=== PATIENT | male | born 1955 | race African-American/Black ===

== ENCOUNTER 2017-03-20 19:55 | Emergency (ER) | payer MEDICAID, OTHER ==
[~2017-03-20] VITALS: Ht 172.7 cm; Wt 84.0 kg
[~2017-03-20 19:55] MED LIST: ASPI-1159 PO; BACL-141 PO; ESCI20TA36 PO; HYDR12.529 PO; METO-293 PO; OMEP20TA80 PO; PSEU120T84 PO; TRAM50TA73; VIC
[2017-03-20] MEDS ORDERED: KETOROLAC 30MG/ML VIAL IV STA (21:59)
[2017-03-20] MEDS ORDERED: ONDANSETRON HCL 4MG/2ML VIAL IV STA (21:59)
[2017-03-20] MEDS ORDERED: FAMOTIDINE 20MG/2ML VIAL IV STA (21:59)
[2017-03-20] MEDS ORDERED: SODIUM CHLORIDE 0.9% 1,000 ML IV ONE (21:59)
[2017-03-20] MEDS ORDERED: MORPHINE SULFATE 4 MG/ML CPJ (NOT FOR IM USE) IV STA (21:59)
[2017-03-20 23:16] LABS: HEMATOCRIT. 43.4 % (42.0-52.0); HEMOGLOBIN. 14.4 g/dL (14.0-18.0); MEAN CORPUSCULAR VOLUME 81.6 fL (80.0-94.0); MEAN PLATELET VOLUME 8.7 fl (7.4-10.4); PLATELET 285 x1000/uL (130-400); PROTHROMBIN TIME 10.8 sec (9.4-11.6); RED BLOOD CELL COUNT 5.32 mill/uL (4.7-6.1); RED CELL DISTRIBUTION WIDTH 15.5 % (11.6-14.6)
[2017-03-20 23:19] LABS: CHLORIDE 103 mEq/L (98-107)
[2017-03-20 23:23] LABS: CARBON DIOXIDE 25 mEq/L (21-32); ETHANOL BLOOD < 10 mg/dL
[2017-03-20 23:28] LABS: TROPONIN I < 0.02 ng/mL (0.00-0.04)
[2017-03-20 23:32] LABS: CLARITY URINE CLEAR (CLEAR); COLOR URINE YELLOW (YELLOW); GLUCOSE URINE 2+ (NEGATIVE); KETONES URINE 2+ (NEGATIVE); LEUKOCYTE ESTERASE URINE NEGATIVE (NEGATIVE); NITRITE URINE NEGATIVE (NEGATIVE); OCCULT BLOOD URINE 1+ (NEGATIVE); PH URINE 8.5 (4.5-8.0); PROTEIN URINE 4+ (NEGATIVE); SPECIFIC GRAVITY URINE 1.023 (1.005-1.030); UROBILINOGEN URINE 0.2 E.U./dL (0.2-1.0)
[2017-03-20 23:54] LABS: *AMPHETAMINES SCREEN URINE NEGATIVE (NEGATIVE); *BARBITURATES SCREEN URINE NEGATIVE (NEGATIVE); *BENZODIAZEPINES SCREEN URINE NEGATIVE (NEGATIVE); *COCAINE SCREEN URINE NEGATIVE (NEGATIVE); CANNABINOID URINE SCREEN NEGATIVE (NEGATIVE); METHADONE URINE SCREEN NEGATIVE (NEGATIVE); OPIATES URINE SCREEN NEGATIVE (NEGATIVE); PHENCYCLIDINE URINE SCREEN NEGATIVE (NEGATIVE)
[2017-03-21] MEDS ORDERED: MAGNESIUM/ALUMINUM HYDROXIDE/SIMETHICONE 30ML UDC PO ONE (00:30)
[2017-03-21] MEDS ORDERED: MORPHINE SULFATE 4 MG/ML CPJ (NOT FOR IM USE) IV ONE (00:30)
[2017-03-21] MEDS ORDERED: HYDRALAZINE 20MG/ML VIAL IV ONE (00:30)
[2017-03-21] MEDS ORDERED: ONDANSETRON HCL 4MG/2ML VIAL IV ONE (00:30)
[2017-03-21 00:32] LABS: PLATELET ESTIMATE NORMAL
[2017-03-21 02:17] VITALS: BP 154/84
== END 2017-03-21 02:17 | disposition home or self-care (01) ==
LOC: ER 21:59
DX: K29.00 Acute gastritis without bleeding (principal); E86.0 Dehydration; I10 Essential (primary) hypertension; Z79.82 Long term (current) use of aspirin; Z98.890 Other specified postprocedural states
CPT/HCPCS: 36415; 71010; 74176; 80053; 80305; 81001; 82962; 83605; 83690; 83880; 84484; 85025; 85610; 87040; 87086; 93005; 96361; 96374; 96375; 96376; 99285; G0482; J0360; J1885; J2270; J2405; J3490; J7030; Z7610

== ENCOUNTER 2017-10-02 14:51 | Emergency (ER) | payer OTHER, MEDICAID ==
[~2017-10-02] VITALS: Ht 172.7 cm; Wt 78.0 kg
[~2017-10-02 14:51] MED LIST changes: +OMEP20TA2 PO; -OMEP20TA80 PO; -TRAM50TA73; +TRAM50TA94
[2017-10-02] MEDS ORDERED: METOCLOPRAMIDE HCL 10MG/2ML VIAL IV ONE (17:00)
[2017-10-02] MEDS ORDERED: FAMOTIDINE 20MG/2ML VIAL IV ONE (17:00)
[2017-10-02] MEDS ORDERED: SODIUM CHLORIDE 0.9% 1,000 ML IV ONE (17:00)
[2017-10-02 18:00] VITALS: BP 180/91
[2017-10-02 18:11] LABS: HEMATOCRIT. 32.8 % (42.0-52.0); HEMOGLOBIN. 10.6 g/dL (14.0-18.0); MEAN CORPUSCULAR HEMOGLOBIN 23.9 pg (28.0-32.0); MEAN PLATELET VOLUME 8.1 fl (7.4-10.4); PLATELET 419 x1000/uL (130-400); RED BLOOD CELL COUNT 4.43 mill/uL (4.7-6.1); RED CELL DISTRIBUTION WIDTH 19.5 % (11.6-14.6)
[2017-10-02 18:14] LABS: CHLORIDE 105 mEq/L (98-107); ETHANOL BLOOD < 10 mg/dL
[2017-10-02 18:48] LABS: PLATELET ESTIMATE SLIGHTLY INCREASED
[2017-10-02 20:18] LABS: CLARITY URINE CLEAR (CLEAR); COLOR URINE YELLOW (YELLOW); KETONES URINE 1+ (NEGATIVE); LEUKOCYTE ESTERASE URINE NEGATIVE (NEGATIVE); NITRITE URINE NEGATIVE (NEGATIVE); OCCULT BLOOD URINE 1+ (NEGATIVE); PH URINE 8.5 (4.5-8.0); PROTEIN URINE 2+ (NEGATIVE); SPECIFIC GRAVITY URINE 1.013 (1.005-1.030); UROBILINOGEN URINE 0.2 E.U./dL (0.2-1.0)
[2017-10-02 20:31] LABS: *AMPHETAMINES SCREEN URINE NEGATIVE (NEGATIVE); *BARBITURATES SCREEN URINE NEGATIVE (NEGATIVE); *BENZODIAZEPINES SCREEN URINE NEGATIVE (NEGATIVE); *COCAINE SCREEN URINE NEGATIVE (NEGATIVE); CANNABINOID URINE SCREEN PRESUMTIVE POSITIVE (NEGATIVE); METHADONE URINE SCREEN NEGATIVE (NEGATIVE); OPIATES URINE SCREEN NEGATIVE (NEGATIVE); PHENCYCLIDINE URINE SCREEN NEGATIVE (NEGATIVE)
== END 2017-10-02 22:05 | disposition home or self-care (01) ==
LOC: ER 18:25
DX: K31.84 Gastroparesis (principal); I10 Essential (primary) hypertension; E11.9 Type 2 diabetes mellitus without complications; F12.10 Cannabis abuse, uncomplicated; Z79.82 Long term (current) use of aspirin
CPT/HCPCS: 36415; 80053; 80305; 81003; 83690; 85025; 96361; 96374; 96375; 99285; G0482; J2765; J3490; J7030

== ENCOUNTER 2018-01-22 11:05 | Emergency (ER) | payer OTHER, MEDICAID ==
[~2018-01-22] VITALS: Ht 177.8 cm; Wt 82.0 kg
[~2018-01-22 11:05] MED LIST changes: -TRAM50TA94; -VIC; +VIC PO
[2018-01-22] MEDS ORDERED: ONDANSETRON 4MG ODT PO ONE (11:45)
[2018-01-22] MEDS ORDERED: MORPHINE SULFATE 10 MG/ML CPJ IM ONE (11:45)
[2018-01-22 13:34] VITALS: BP 189/97
== END 2018-01-22 13:35 | disposition home or self-care (01) ==
LOC: ER 11:05
DX: M54.5 Low back pain (principal); E11.9 Type 2 diabetes mellitus without complications; I10 Essential (primary) hypertension; M47.896 Other spondylosis, lumbar region; Z88.0 Allergy status to penicillin; Z88.8 Allergy status to other drugs, medicaments and biological substances; Z96.659 Presence of unspecified artificial knee joint; Z98.890 Other specified postprocedural states; Z86.73 Personal history of transient ischemic attack (TIA), and cerebral infarction without residual deficits; V73.6XXA Passenger on bus injured in collision with car, pick-up truck or van in traffic accident, initial encounter; Y93.89 Activity, other specified; Y92.488 Other paved roadways as the place of occurrence of the external cause
CPT/HCPCS: 96372; 99283; J2270; Q0162

== ENCOUNTER 2018-05-08 00:31 | Inpatient (IN) | payer MEDICAID, OTHER ==
[~2018-05-08] VITALS: Ht 365.8 cm; Wt 76.3 kg
[2018-05-08] MEDS ORDERED: SODIUM CHLORIDE 0.9% 1,000 ML IV ONE (00:59)
[2018-05-08] MEDS ORDERED: PANTOPRAZOLE SODIUM 40 MG/VIAL IV STA (00:59)
[2018-05-08 01:55] LABS: BASOPHILS % 0.4 % (0.0-2.0); EOSINOPHILS % 0.1 % (0.0-5.0); HEMATOCRIT. 41.3 % (42.0-52.0); HEMOGLOBIN. 13.5 g/dL (14.0-18.0); LYMPHOCYTES % 8.3 % (20.0-50.0); MEAN CORPUSCULAR HEMOGLOBIN 25.6 pg (28.0-32.0); MEAN CORPUSCULAR VOLUME 78.4 fL (80.0-94.0); MONOCYTES % 7.4 % (2.0-8.0); NEUTROPHILS % 83.8 % (40.0-76.0); PLATELET 466 x1000/uL (130-400); RED BLOOD CELL COUNT 5.27 mill/uL (4.7-6.1); RED CELL DISTRIBUTION WIDTH 17.6 % (11.6-14.6)
[2018-05-08 01:59] LABS: PROTHROMBIN TIME 10.5 sec (9.1-11.1)
[2018-05-08 02:03] LABS: CHLORIDE 97 mEq/L (98-107)
[2018-05-08 02:13] LABS: CLARITY URINE CLEAR (CLEAR); COLOR URINE YELLOW (YELLOW); KETONES URINE 1+ (NEGATIVE); LEUKOCYTE ESTERASE URINE NEGATIVE (NEGATIVE); NITRITE URINE NEGATIVE (NEGATIVE); OCCULT BLOOD URINE 1+ (NEGATIVE); PH URINE 6.5 (4.5-8.0); PROTEIN URINE 4+ (NEGATIVE); SPECIFIC GRAVITY URINE 1.023 (1.005-1.030); UROBILINOGEN URINE 0.2 E.U./dL (0.2-1.0)
[2018-05-08] MEDS ORDERED: HYDROCHLOROTHIAZIDE 25MG TABLET PO ONE (03:15)
[2018-05-08] MEDS ORDERED: IOHEXOL-300 100 ML BOTTLE ONE (03:29)
[2018-05-08] MEDS: HYDROCHLOROTHIAZIDE 12.5MG CAPSULE PO NR ×2 (03:45→03:55)
[2018-05-08] MEDS ORDERED: SODIUM CHLORIDE 0.9% 1000ML BAG (SEPSIS BOLUS) IV ONE (04:00)
[2018-05-08] MEDS ORDERED: SODIUM CHLORIDE 0.9% IV SCH (04:00)
[2018-05-08 10:20] VITALS: BP 150/93
[2018-05-08 12:00] VITALS: BP 146/95
[2018-05-08] MEDS: INSULIN LISPRO 100 UNITS/ML SUBCUT SCH ×3 (13:10→21:17)
[2018-05-08] MEDS ORDERED: DEXTROSE 50% WATER 50ML SYRINGE IV PRN (13:15)
[2018-05-08] MEDS ORDERED: HYDRALAZINE 20MG/ML VIAL IV PRN (13:15)
[2018-05-08] MEDS ORDERED: ONDANSETRON HCL 4MG/2ML INJ IV PRN (13:15)
[2018-05-08] MEDS: DEXT 5%/0.45% NACL 1000ML 1,000 ML IV SCH (13:29)
[2018-05-08] MEDS: AMLODIPINE 5MG TABLET PO SCH (14:15)
[2018-05-08] MEDS: PANTOPRAZOLE SODIUM 40 MG/VIAL IV SCH (14:15)
[2018-05-08 16:00] VITALS: BP 146/82
[2018-05-08] MEDS: BLOOD SUGAR DIAGNOSTIC STRIP TEST SCH ×2 (18:08→21:18)
[2018-05-08] MEDS: METOCLOPRAMIDE HCL 10MG/2ML VIAL IV SCH (18:14)
[2018-05-08 19:01] VITALS: BP 150/93
[2018-05-08 20:01] VITALS: BP 113/82
[2018-05-09] VITALS: BP 118/78
[2018-05-09] MEDS: METOCLOPRAMIDE HCL 10MG/2ML VIAL IV SCH ×4 (01:29→18:21)
[2018-05-09] MEDS: AMLODIPINE 5MG TABLET PO SCH ×2 (01:30→09:41)
[2018-05-09] MEDS: DEXT 5%/0.45% NACL 1000ML 1,000 ML IV SCH (02:35)
[2018-05-09 04:00] VITALS: BP 123/86
[2018-05-09] MEDS: BLOOD SUGAR DIAGNOSTIC STRIP TEST SCH ×3 (06:14→17:51)
[2018-05-09 06:15] LABS: HEMATOCRIT 33.3 % (42.0-52.0); MEAN CORPUSCULAR HEMOGLOBIN 25.8 pg (28.0-32.0); MEAN CORPUSCULAR VOLUME 78.1 fL (80.0-94.0); PLATELET 341 x1000/uL (130-400); RED BLOOD CELL COUNT 4.27 mill/uL (4.7-6.1); RED CELL DISTRIBUTION WIDTH 17.3 % (11.6-14.6)
[2018-05-09 07:58] LABS: CHLORIDE 106 mEq/L (98-107)
[2018-05-09 08:00] VITALS: BP 117/68
[2018-05-09] MEDS: INSULIN LISPRO 100 UNITS/ML SUBCUT SCH ×3 (08:00→17:51)
[2018-05-09] MEDS: PANTOPRAZOLE SODIUM 40 MG/VIAL IV SCH (09:40)
[2018-05-09 12:00] VITALS: BP 131/73
[2018-05-09 16:00] VITALS: BP 122/61
[2018-05-09 16:40] VITALS: BP 131/73
== END 2018-05-09 19:20 | disposition home or self-care (01) | DRG 241 ==
LOC: ER 00:31 → 7WST 05:09 → EDBEDREQ 05:16 → EDBEDREQTM 05:16 → ENRESERV 09:35
PROVIDERS: ADMIT Internal Medicine; ATTEND Internal Medicine
DX: K29.71 Gastritis, unspecified, with bleeding (principal); K31.84 Gastroparesis; E87.2 Acidosis; E11.43 Type 2 diabetes mellitus with diabetic autonomic (poly)neuropathy; E87.1 Hypo-osmolality and hyponatremia; E11.65 Type 2 diabetes mellitus with hyperglycemia; E87.8 Other disorders of electrolyte and fluid balance, not elsewhere classified; K57.31 Diverticulosis of large intestine without perforation or abscess with bleeding; K25.4 Chronic or unspecified gastric ulcer with hemorrhage; K22.6 Gastro-esophageal laceration-hemorrhage syndrome; Z96.659 Presence of unspecified artificial knee joint; D50.9 Iron deficiency anemia, unspecified; I10 Essential (primary) hypertension; Z86.73 Personal history of transient ischemic attack (TIA), and cerebral infarction without residual deficits; Z87.11 Personal history of peptic ulcer disease; Z88.0 Allergy status to penicillin; Z88.8 Allergy status to other drugs, medicaments and biological substances; Z79.899 Other long term (current) drug therapy; Z79.82 Long term (current) use of aspirin
CPT/HCPCS: 36415; 74177; 80048; 82962; 83605; 85027; 86850; 86900; 93005; 96361; 96374; 99285; C9113; J1815; J2765; J3490; J7030; Q9967

== ENCOUNTER 2018-05-22 08:12 | Inpatient (IN) | payer MEDICAID, OTHER ==
[~2018-05-22] VITALS: Ht 172.7 cm; Wt 74.8 kg
[2018-05-22] MEDS ORDERED: SODIUM CHLORIDE 0.9% 1,000 ML IV ONE (08:25)
[2018-05-22] MEDS ORDERED: MORPHINE SULFATE 4 MG/ML CPJ (NOT FOR IM USE) IV STA (08:25)
[2018-05-22] MEDS ORDERED: ONDANSETRON HCL 4MG/2ML INJ IV STA (08:25)
[2018-05-22] MEDS ORDERED: METOCLOPRAMIDE HCL 10MG/2ML VIAL IV ONE (08:30)
[2018-05-22 09:04] LABS: BG BASE EXCESS -2.2 mmol/L (-2.0-2.0); BG CARBOXYHEMOGLOBIN 0.6 % (0.5-1.5); BG DEOXYHEMOGLOBIN 1.8 % (0.0-5.0); BG FRACTION INSPIRED OXYGEN 21; BG HCO3 ACT 18.6 mmol/L (22.0-26.0); BG METHEMOGLOBIN 0.3 % (0.0-1.5); BG OXYGEN SATURATION 98.2 % (92.0-98.5); BG OXYHEMOGLOBIN 97.3 % (94.0-97.0); BG PH 7.545 (7.350-7.450); BG PO2 100.6 mmHg (75.0-100.0); BG SAMPLE SITE RIGHT BRACHIAL; BG TOTAL HEMOGLOBIN 11.6 g/dL (12.0-18.0); BG VENT MODE ROOM AIR
[2018-05-22 09:21] LABS: HEMATOCRIT. 39.1 % (42.0-52.0); HEMOGLOBIN. 12.5 g/dL (14.0-18.0); MEAN CORPUSCULAR HEMOGLOBIN 25.1 pg (28.0-32.0); MEAN CORPUSCULAR VOLUME 78.4 fL (80.0-94.0); MEAN PLATELET VOLUME 9.1 fl (7.4-10.4); PLATELET 448 x1000/uL (130-400); RED BLOOD CELL COUNT 4.98 mill/uL (4.7-6.1); RED CELL DISTRIBUTION WIDTH 17.8 % (11.6-14.6)
[2018-05-22 09:30] LABS: CHLORIDE 104 mEq/L (98-107)
[2018-05-22 09:36] LABS: PROTHROMBIN TIME 9.8 sec (9.1-11.1)
[2018-05-22 09:52] LABS: CLARITY URINE CLEAR (CLEAR); COLOR URINE YELLOW (YELLOW); KETONES URINE 1+ (NEGATIVE); LEUKOCYTE ESTERASE URINE NEGATIVE (NEGATIVE); NITRITE URINE NEGATIVE (NEGATIVE); OCCULT BLOOD URINE TRACE (NEGATIVE); PROTEIN URINE 2+ (NEGATIVE); SPECIFIC GRAVITY URINE 1.011 (1.005-1.030); UROBILINOGEN URINE 0.2 E.U./dL (0.2-1.0)
[2018-05-22 09:52] LABS: BETA HYDROXYBUTYRATE 0.5 mMol/L (0.0-0.3); ETHANOL BLOOD < 10 mg/dL
[2018-05-22 10:13] LABS: PLATELET ESTIMATE SLIGHTLY INCREASED
[2018-05-22 10:29] LABS: *AMPHETAMINES SCREEN URINE NEGATIVE (NEGATIVE); *BARBITURATES SCREEN URINE NEGATIVE (NEGATIVE); *BENZODIAZEPINES SCREEN URINE NEGATIVE (NEGATIVE); *COCAINE SCREEN URINE NEGATIVE (NEGATIVE)
[2018-05-22 10:30] LABS: CANNABINOID URINE SCREEN PRESUMTIVE POSITIVE (NEGATIVE); METHADONE URINE SCREEN NEGATIVE (NEGATIVE); OPIATES URINE SCREEN PRESUMTIVE POSITIVE (NEGATIVE); PHENCYCLIDINE URINE SCREEN NEGATIVE (NEGATIVE)
[2018-05-22] MEDS ORDERED: LABETALOL 5MG/ML SYR 20 MG/4 ML SYRINGE IV ONE (11:15)
[2018-05-22] MEDS ORDERED: IOHEXOL-300 100 ML BOTTLE ONE (11:26)
[2018-05-22] MEDS ORDERED: MORPHINE SULFATE 4 MG/ML CPJ (NOT FOR IM USE) IV PRN (12:45)
[2018-05-22] MEDS ORDERED: HYDRALAZINE 20MG/ML VIAL IV ONE (12:45)
[2018-05-22] MEDS ORDERED: ONDANSETRON HCL 4MG/2ML INJ IV PRN ×3 (12:45→21:30)
[2018-05-22] MEDS ORDERED: CLONIDINE 0.1MG TABLET PO PRN (12:45)
[2018-05-22] MEDS ORDERED: DEXTROSE 50% WATER 50ML SYRINGE IV PRN ×2 (12:45→21:30)
[2018-05-22] MEDS ORDERED: SODIUM CHLORIDE 0.9% 1,000 ML IV SCH (12:45)
[2018-05-22] MEDS ORDERED: BLOOD SUGAR DIAGNOSTIC STRIP TEST SCH (13:00)
[2018-05-22] MEDS ORDERED: SUCRALFATE 1 G/10 ML UDC PO SCH (13:00)
[2018-05-22] MEDS ORDERED: HYDRALAZINE 20MG/ML VIAL IV NR (13:15)
[2018-05-22] MEDS ORDERED: INSULIN LISPRO 100 UNITS/ML SUBCUT SCH (13:20)
[2018-05-22] MEDS ORDERED: HYDRALAZINE 20MG/ML VIAL IV SCH (18:00)
[2018-05-22] MEDS ORDERED: METOCLOPRAMIDE 10MG/10 ML UDC PO SCH (18:00)
[2018-05-22] MEDS ORDERED: NIFEDIPINE XL 60MG TAB PO SCH (18:30)
[2018-05-22 19:21] LABS: CHLORIDE 105 mEq/L (98-107)
[2018-05-22 20:30] VITALS: BP 197/95
[2018-05-22 21:00] VITALS: BP 197/95
[2018-05-22] MEDS: HYDRALAZINE 20MG/ML VIAL IV SCH (21:55)
[2018-05-22] MEDS: SODIUM CHLORIDE 0.9% 1,000 ML IV SCH (21:56)
[2018-05-23] VITALS: BP 110/63
[2018-05-23] MEDS: METOCLOPRAMIDE 10MG/10 ML UDC PO SCH ×3 (00:38→12:14)
[2018-05-23 04:00] VITALS: BP 112/67
[2018-05-23] MEDS: HYDRALAZINE 20MG/ML VIAL IV SCH ×2 (04:47→08:41)
[2018-05-23] MEDS: BLOOD SUGAR DIAGNOSTIC STRIP TEST SCH ×3 (07:01→18:23)
[2018-05-23 08:00] VITALS: BP 124/86
[2018-05-23] MEDS: INSULIN LISPRO 100 UNITS/ML SUBCUT SCH ×3 (08:39→18:10)
[2018-05-23] MEDS: SUCRALFATE 1 G/10 ML UDC PO SCH ×2 (08:39→12:14)
[2018-05-23] MEDS ORDERED: PANTOPRAZOLE SODIUM 40 MG/VIAL IV SCH ×2 (09:00)
[2018-05-23] MEDS: SODIUM CHLORIDE 0.9% 1,000 ML IV SCH (11:39)
[2018-05-23 16:00] VITALS: BP 138/72
[2018-05-23 18:12] VITALS: BP 138/72
== END 2018-05-23 18:40 | disposition home or self-care (01) | DRG 241 ==
LOC: ER 08:20 → 7WST 11:13 → ENRESERV 18:40 → ER 20:04 → CMPBEDREQ 20:22
PROVIDERS: ADMIT Internal Medicine; ATTEND Internal Medicine
DX: K27.9 Peptic ulcer, site unspecified, unspecified as acute or chronic, without hemorrhage or perforation (principal); K31.84 Gastroparesis; E10.43 Type 1 diabetes mellitus with diabetic autonomic (poly)neuropathy; I16.0 Hypertensive urgency; D64.9 Anemia, unspecified; F12.90 Cannabis use, unspecified, uncomplicated; I10 Essential (primary) hypertension; Z96.659 Presence of unspecified artificial knee joint; K57.90 Diverticulosis of intestine, part unspecified, without perforation or abscess without bleeding; K21.9 Gastro-esophageal reflux disease without esophagitis; D72.829 Elevated white blood cell count, unspecified; K44.9 Diaphragmatic hernia without obstruction or gangrene; Z86.73 Personal history of transient ischemic attack (TIA), and cerebral infarction without residual deficits; Z87.11 Personal history of peptic ulcer disease; Z88.0 Allergy status to penicillin; Z88.8 Allergy status to other drugs, medicaments and biological substances; Z79.82 Long term (current) use of aspirin; Z79.899 Other long term (current) drug therapy
CPT/HCPCS: 36415; 36600; 71045; 74177; 80048; 80305; 82010; 82375; 82805; 82962; 83880; 84484; 93005; 96361; 96374; 96375; 96376; 99285; C9113; G0482; J0360; J1815; J2270; J2405; J2765; J3490; J7030; J8597; Q9967

== ENCOUNTER 2018-07-06 22:18 | Emergency (ER) | payer MEDICAID, OTHER ==
[~2018-07-06] VITALS: Ht 172.7 cm; Wt 75.0 kg
[2018-07-07 01:04] LABS: HEMATOCRIT. 31.3 % (42.0-52.0); HEMOGLOBIN. 10.1 g/dL (14.0-18.0); MEAN CORPUSCULAR HEMOGLOBIN 25.4 pg (28.0-32.0); MEAN CORPUSCULAR VOLUME 78.8 fL (80.0-94.0); MEAN PLATELET VOLUME 8.5 fl (7.4-10.4); PLATELET 351 x1000/uL (130-400); RED BLOOD CELL COUNT 3.97 mill/uL (4.7-6.1); RED CELL DISTRIBUTION WIDTH 18.8 % (11.6-14.6)
[2018-07-07 01:08] LABS: CHLORIDE 105 mEq/L (98-107)
[2018-07-07 01:19] LABS: BETA HYDROXYBUTYRATE 0.5 mMol/L (0.0-0.3)
[2018-07-07 01:30] LABS: *AMPHETAMINES SCREEN URINE NEGATIVE (NEGATIVE); *BARBITURATES SCREEN URINE NEGATIVE (NEGATIVE); *BENZODIAZEPINES SCREEN URINE NEGATIVE (NEGATIVE); *COCAINE SCREEN URINE NEGATIVE (NEGATIVE); METHADONE URINE SCREEN NEGATIVE (NEGATIVE); OPIATES URINE SCREEN NEGATIVE (NEGATIVE)
[2018-07-07] MEDS ORDERED: HYDROCHLOROTHIAZIDE 25MG TABLET PO ONE (01:30)
[2018-07-07] MEDS ORDERED: CLONIDINE 0.1MG TABLET PO ONE (01:30)
[2018-07-07 01:31] LABS: CANNABINOID URINE SCREEN PRESUMTIVE POSITIVE (NEGATIVE); PHENCYCLIDINE URINE SCREEN NEGATIVE (NEGATIVE)
[2018-07-07 01:46] LABS: PLATELET ESTIMATE NORMAL
[2018-07-07] MEDS ORDERED: METOCLOPRAMIDE HCL 10MG/2ML VIAL IV ONE ×2 (04:15)
[2018-07-07] MEDS ORDERED: HALOPERIDOL LACTATE 5MG/ML VIAL IM ONE ×2 (04:15)
[2018-07-07 04:51] VITALS: BP 184/99
== END 2018-07-07 04:53 | disposition home or self-care (01) ==
LOC: ER 22:18
DX: F12.188 Cannabis abuse with other cannabis-induced disorder (principal); I10 Essential (primary) hypertension; E11.43 Type 2 diabetes mellitus with diabetic autonomic (poly)neuropathy; K31.84 Gastroparesis; Z88.0 Allergy status to penicillin; Z88.8 Allergy status to other drugs, medicaments and biological substances; Z79.82 Long term (current) use of aspirin
CPT/HCPCS: 36415; 80053; 80305; 82010; 82962; 83690; 85025; 93005; 96372; 96374; 96376; 99284; J1630; J2765

== ENCOUNTER 2018-10-15 09:19 | Inpatient (IN) | payer MEDICAID, OTHER ==
[2018-10-15] VITALS (12 sets, daily range): BP systolic 103–120; BP diastolic 65–73
[~2018-10-15] VITALS: Ht 172.7 cm; Wt 70.8 kg
[2018-10-15] MEDS ORDERED: VISCOUS LIDOCAINE 2% 15 ML UDC PO STA (10:12)
[2018-10-15] MEDS ORDERED: SODIUM CHLORIDE 0.9% 1,000 ML IV ONE ×2 (10:12→10:41)
[2018-10-15] MEDS ORDERED: ONDANSETRON HCL 4MG/2ML INJ IV STA ×2 (10:12→10:41)
[2018-10-15] MEDS ORDERED: MAGNESIUM/ALUMINUM HYDROXIDE/SIMETHICONE 30ML UDC PO STA (10:12)
[2018-10-15 10:30] LABS: HEMATOCRIT. 38.1 % (42.0-52.0); MEAN CORPUSCULAR HEMOGLOBIN 23.8 pg (28.0-32.0); MEAN CORPUSCULAR VOLUME 75.8 fL (80.0-94.0); MEAN PLATELET VOLUME 8.1 fl (7.4-10.4); PLATELET 389 x1000/uL (130-400); RED BLOOD CELL COUNT 5.02 mill/uL (4.7-6.1); RED CELL DISTRIBUTION WIDTH 22.9 % (11.6-14.6)
[2018-10-15 10:36] LABS: CHLORIDE 104 mEq/L (98-107)
[2018-10-15 10:37] LABS: PROTHROMBIN TIME 10.3 sec (9.1-11.1)
[2018-10-15] MEDS ORDERED: KETOROLAC 30MG/ML VIAL IV STA (10:41)
[2018-10-15 10:58] LABS: CLARITY URINE CLEAR (CLEAR); COLOR URINE YELLOW (YELLOW); KETONES URINE 1+ (NEGATIVE); LEUKOCYTE ESTERASE URINE NEGATIVE (NEGATIVE); NITRITE URINE NEGATIVE (NEGATIVE); OCCULT BLOOD URINE 1+ (NEGATIVE); PH URINE 8.5 (4.5-8.0); PROTEIN URINE 2+ (NEGATIVE); SPECIFIC GRAVITY URINE 1.011 (1.005-1.030); UROBILINOGEN URINE 0.2 E.U./dL (0.2-1.0)
[2018-10-15] MEDS ORDERED: HYDRALAZINE 20MG/ML VIAL IV ONE (11:45)
[2018-10-15 11:46] LABS: PLATELET ESTIMATE NORMAL
[2018-10-15] MEDS ORDERED: CEFTRIAXONE 1 G PREMIX 50 ML IV ONE (12:30)
[2018-10-15] MEDS ORDERED: FENTANYL CITRATE/PF 50MCG/ML 2ML VIAL IV NR (12:30)
[2018-10-15] MEDS ORDERED: POTASSIUM CHLORIDE 20MEQ TABLET SR PO NR (12:35)
[2018-10-15] MEDS ORDERED: SODIUM CHLORIDE 0.9% 1,000 ML IV NR (12:36)
[2018-10-15] MEDS ORDERED: DEXTROSE 50% WATER 50ML SYRINGE IV PRN (13:00)
[2018-10-15] MEDS ORDERED: HYDRALAZINE 20MG/ML VIAL IV PRN ×3 (13:00→15:59)
[2018-10-15] MEDS ORDERED: ONDANSETRON HCL 4MG/2ML INJ IV PRN ×2 (13:00→16:04)
[2018-10-15] MEDS ORDERED: LABETALOL 5MG/ML SYR 20 MG/4 ML SYRINGE IV NR (13:25)
[2018-10-15] MEDS: SODIUM CHLORIDE 0.9% 1,000 ML IV SCH ×2 (13:30→22:12)
[2018-10-15] MEDS ORDERED: NIFEDIPINE XL 60MG TAB PO SCH (13:30)
[2018-10-15] MEDS ORDERED: NICARDIPINE 50 MG in SODIUM CHLORIDE 0.9% 230 ML IV PRN ×2 (15:00→16:15)
[2018-10-15] MEDS ORDERED: METOCLOPRAMIDE HCL 10MG/2ML VIAL IV NR (15:59)
[2018-10-15] MEDS ORDERED: METOPROLOL TARTRATE 50MG TABLET PO SCH (16:00)
[2018-10-15] MEDS: NIFEDIPINE XL 60MG TAB PO SCH ×2 (16:00→23:00)
[2018-10-15] MEDS ORDERED: MORPHINE SULFATE 4 MG/ML CPJ (NOT FOR IM USE) IV PRN (16:00)
[2018-10-15] MEDS ORDERED: PANTOPRAZOLE SODIUM 40 MG/VIAL IV SCH (16:05)
[2018-10-15] MEDS: MORPHINE SULFATE 4 MG/ML CPJ (NOT FOR IM USE) IV PRN (18:59)
[2018-10-15 19:48] LABS: *AMPHETAMINES SCREEN URINE NEGATIVE (NEGATIVE); *BARBITURATES SCREEN URINE NEGATIVE (NEGATIVE); *BENZODIAZEPINES SCREEN URINE NEGATIVE (NEGATIVE); *COCAINE SCREEN URINE NEGATIVE (NEGATIVE); CANNABINOID URINE SCREEN PRESUMTIVE POSITIVE (NEGATIVE); METHADONE URINE SCREEN NEGATIVE (NEGATIVE); OPIATES URINE SCREEN NEGATIVE (NEGATIVE); PHENCYCLIDINE URINE SCREEN NEGATIVE (NEGATIVE)
[2018-10-15] MEDS: METOPROLOL TARTRATE 50MG TABLET PO SCH (21:32)
[2018-10-15] MEDS: BLOOD SUGAR DIAGNOSTIC STRIP TEST SCH (21:56)
[2018-10-15] MEDS: ATORVASTATIN CALCIUM 40MG TABLET PO SCH (22:13)
[2018-10-15] MEDS: INSULIN LISPRO 100 UNITS/ML SUBCUT SCH (22:13)
[2018-10-16] VITALS (49 sets, daily range): BP systolic 99–154; BP diastolic 53–90
[2018-10-16] MEDS: METOCLOPRAMIDE HCL 10MG/2ML VIAL IV SCH ×5 (00:35→23:28)
[2018-10-16] MEDS: MORPHINE SULFATE 4 MG/ML CPJ (NOT FOR IM USE) IV PRN ×2 (05:18→20:17)
[2018-10-16 05:45] LABS: BASOPHILS % 0.2 % (0.0-2.0); EOSINOPHILS % 0.7 % (0.0-5.0); HEMATOCRIT. 36.2 % (42.0-52.0); HEMOGLOBIN. 11.4 g/dL (14.0-18.0); MEAN CORPUSCULAR HEMOGLOBIN 23.9 pg (28.0-32.0); MEAN CORPUSCULAR VOLUME 76.1 fL (80.0-94.0); MEAN PLATELET VOLUME 8.4 fl (7.4-10.4); MONOCYTES % 10.5 % (2.0-8.0); NEUTROPHILS % 71.6 % (40.0-76.0); PLATELET 339 x1000/uL (130-400); RED BLOOD CELL COUNT 4.76 mill/uL (4.7-6.1); RED CELL DISTRIBUTION WIDTH 23.6 % (11.6-14.6)
[2018-10-16 05:54] LABS: CHLORIDE 111 mEq/L (98-107)
[2018-10-16] MEDS: BLOOD SUGAR DIAGNOSTIC STRIP TEST SCH ×4 (06:00→20:14)
[2018-10-16] MEDS: INSULIN LISPRO 100 UNITS/ML SUBCUT SCH ×4 (06:00→20:14)
[2018-10-16] MEDS: METOPROLOL TARTRATE 50MG TABLET PO SCH ×2 (08:40→20:15)
[2018-10-16] MEDS: NIFEDIPINE XL 60MG TAB PO SCH ×2 (08:41→20:15)
[2018-10-16] MEDS: SODIUM CHLORIDE 0.9% 1,000 ML IV SCH ×2 (08:41→17:30)
[2018-10-16] MEDS: PANTOPRAZOLE SODIUM 40 MG/VIAL IV SCH (08:43)
[2018-10-16] MEDS ORDERED: KCL 20MEQ/100ML PREMIX 100 ML IV SCH (13:00)
[2018-10-16] MEDS: ATORVASTATIN CALCIUM 40MG TABLET PO SCH (20:14)
[2018-10-17] VITALS: BP 143/76
[2018-10-17 00:30] VITALS: BP 141/78
[2018-10-17] MEDS: MORPHINE SULFATE 4 MG/ML CPJ (NOT FOR IM USE) IV PRN ×3 (00:52→20:55)
[2018-10-17] MEDS ORDERED: GABA-529 MT (01:19)
[2018-10-17] MEDS ORDERED: ACET-2178 MT (01:19)
[2018-10-17 04:00] VITALS: BP 143/69
[2018-10-17] MEDS: METOCLOPRAMIDE HCL 10MG/2ML VIAL IV SCH ×3 (05:03→17:07)
[2018-10-17] MEDS: BLOOD SUGAR DIAGNOSTIC STRIP TEST SCH ×4 (07:20→21:45)
[2018-10-17 07:29] LABS: BASOPHILS % 0.7 % (0.0-2.0); EOSINOPHILS % 3.8 % (0.0-5.0); HEMATOCRIT. 34.8 % (42.0-52.0); HEMOGLOBIN. 10.9 g/dL (14.0-18.0); LYMPHOCYTES % 26.9 % (20.0-50.0); MEAN CORPUSCULAR HEMOGLOBIN 23.9 pg (28.0-32.0); MEAN CORPUSCULAR VOLUME 76.7 fL (80.0-94.0); MONOCYTES % 8.2 % (2.0-8.0); NEUTROPHILS % 60.4 % (40.0-76.0); PLATELET 303 x1000/uL (130-400); RED BLOOD CELL COUNT 4.54 mill/uL (4.7-6.1); RED CELL DISTRIBUTION WIDTH 23.9 % (11.6-14.6)
[2018-10-17] MEDS: INSULIN LISPRO 100 UNITS/ML SUBCUT SCH ×4 (07:50→21:00)
[2018-10-17 08:29] LABS: CHLORIDE 112 mEq/L (98-107)
[2018-10-17] MEDS: METOPROLOL TARTRATE 50MG TABLET PO SCH ×2 (08:43→20:56)
[2018-10-17] MEDS: NIFEDIPINE XL 60MG TAB PO SCH ×2 (08:43→20:54)
[2018-10-17] MEDS: PANTOPRAZOLE SODIUM 40 MG/VIAL IV SCH (08:44)
[2018-10-17] MEDS ORDERED: POTASSIUM CHLORIDE 20MEQ TABLET SR PO NR (09:45)
[2018-10-17 12:00] VITALS: BP 118/58
[2018-10-17 16:00] VITALS: BP 144/77
[2018-10-17 16:47] LABS: CHLORIDE 113 mEq/L (98-107)
[2018-10-17] MEDS: SODIUM CHLORIDE 0.9% 1,000 ML IV SCH (17:09)
[2018-10-17 20:00] VITALS: BP 135/76
[2018-10-17] MEDS: ATORVASTATIN CALCIUM 40MG TABLET PO SCH (20:54)
[2018-10-18] VITALS: BP 139/71
[2018-10-18] MEDS: MORPHINE SULFATE 4 MG/ML CPJ (NOT FOR IM USE) IV PRN ×3 (01:04→21:57)
[2018-10-18] MEDS: METOCLOPRAMIDE HCL 10MG/2ML VIAL IV SCH ×4 (01:04→17:59)
[2018-10-18] MEDS: SODIUM CHLORIDE 0.9% 1,000 ML IV SCH ×3 (01:04→21:58)
[2018-10-18 04:00] VITALS: BP 132/73
[2018-10-18 06:46] LABS: BASOPHILS % 0.6 % (0.0-2.0); EOSINOPHILS % 3.8 % (0.0-5.0); HEMATOCRIT. 32.7 % (42.0-52.0); HEMOGLOBIN. 10.4 g/dL (14.0-18.0); LYMPHOCYTES % 23.1 % (20.0-50.0); MEAN CORPUSCULAR HEMOGLOBIN 24.3 pg (28.0-32.0); MEAN CORPUSCULAR VOLUME 76.1 fL (80.0-94.0); MONOCYTES % 10.8 % (2.0-8.0); NEUTROPHILS % 61.7 % (40.0-76.0); PLATELET 279 x1000/uL (130-400); RED CELL DISTRIBUTION WIDTH 23.2 % (11.6-14.6)
[2018-10-18 07:19] LABS: CHLORIDE 110 mEq/L (98-107)
[2018-10-18] MEDS: BLOOD SUGAR DIAGNOSTIC STRIP TEST SCH ×4 (07:37→20:44)
[2018-10-18] MEDS: INSULIN LISPRO 100 UNITS/ML SUBCUT SCH ×4 (07:50→20:45)
[2018-10-18 08:00] VITALS: BP 150/88
[2018-10-18] MEDS: FAMOTIDINE 20MG/2ML VIAL IV SCH ×2 (08:57→20:17)
[2018-10-18] MEDS: NIFEDIPINE XL 60MG TAB PO SCH ×2 (08:57→20:18)
[2018-10-18] MEDS: METOPROLOL TARTRATE 50MG TABLET PO SCH ×2 (08:57→20:18)
[2018-10-18] MEDS ORDERED: POTASSIUM CHLORIDE 20MEQ TABLET SR PO NR (09:00)
[2018-10-18 11:46] VITALS: BP 133/74
[2018-10-18] MEDS ORDERED: LIP40 PO (12:29)
[2018-10-18] MEDS ORDERED: NIFE60TA64 PO (12:29)
[2018-10-18] MEDS ORDERED: METO-539 PO (12:29)
[2018-10-18 16:00] VITALS: BP 137/75
[2018-10-18 20:00] VITALS: BP 146/59
[2018-10-18] MEDS: ATORVASTATIN CALCIUM 40MG TABLET PO SCH (20:17)
[2018-10-19] VITALS: BP 149/73
[2018-10-19] MEDS: METOCLOPRAMIDE HCL 10MG/2ML VIAL IV SCH ×3 (02:40→12:00)
[2018-10-19] MEDS: MORPHINE SULFATE 4 MG/ML CPJ (NOT FOR IM USE) IV PRN (02:41)
[2018-10-19 04:00] VITALS: BP 158/78
[2018-10-19] MEDS: BLOOD SUGAR DIAGNOSTIC STRIP TEST SCH ×2 (06:21→12:20)
[2018-10-19] MEDS: INSULIN LISPRO 100 UNITS/ML SUBCUT SCH ×2 (07:50→13:55)
[2018-10-19 08:00] VITALS: BP 154/72
[2018-10-19] MEDS: NIFEDIPINE XL 60MG TAB PO SCH (09:21)
[2018-10-19] MEDS: METOPROLOL TARTRATE 50MG TABLET PO SCH (09:22)
[2018-10-19] MEDS: FAMOTIDINE 20MG/2ML VIAL IV SCH (09:22)
[2018-10-19 12:00] VITALS: BP 145/82
[2018-10-19 14:24] VITALS: BP 145/82
[2018-11-11] MEDS ORDERED: LANTUSUD SUBCUT (14:34)
== END 2018-10-19 16:15 | disposition home or self-care (01) | DRG 440 ==
LOC: ER 09:19 → MICUSO 12:27 → EDBEDREQSVC 12:35 → EDBEDREQ 12:35 → EDBEDREQSVC 16:23 → ENRESERV 20:14 → 6EST 10-17 01:12
PROVIDERS: ADMIT Internal Medicine; ATTEND Internal Medicine
DX: K85.90 Acute pancreatitis without necrosis or infection, unspecified (principal); K31.84 Gastroparesis; I16.0 Hypertensive urgency; E87.6 Hypokalemia; E78.5 Hyperlipidemia, unspecified; Z86.73 Personal history of transient ischemic attack (TIA), and cerebral infarction without residual deficits; E11.43 Type 2 diabetes mellitus with diabetic autonomic (poly)neuropathy; K57.30 Diverticulosis of large intestine without perforation or abscess without bleeding; K44.9 Diaphragmatic hernia without obstruction or gangrene; N28.1 Cyst of kidney, acquired; N40.0 Benign prostatic hyperplasia without lower urinary tract symptoms; I10 Essential (primary) hypertension; K21.9 Gastro-esophageal reflux disease without esophagitis; Z88.1 Allergy status to other antibiotic agents; Z88.9 Allergy status to unspecified drugs, medicaments and biological substances; Z79.4 Long term (current) use of insulin
CPT/HCPCS: 36415; 71045; 74176; 76700; 80048; 80061; 80305; 82962; 83036; 83605; 84153; 96374; 99291; C9113; J0360; J0696; J1815; J1885; J2270; J2405; J2765; J3010; J3480; J3490; J7030; J7050; G0103

== ENCOUNTER 2018-10-28 05:30 | Inpatient (IN) | payer MEDICAID, OTHER ==
[~2018-10-28] VITALS: Ht 172.7 cm; Wt 74.8 kg
[~2018-10-28 05:30] MED LIST changes: +ACET-2178 MT; +GABA-529 MT; +LIP40 PO; +METO-539 PO; +NIFE60TA64 PO
[2018-10-28] MEDS ORDERED: ONDANSETRON HCL 4MG/2ML INJ IV STA ×2 (06:22→07:27)
[2018-10-28] MEDS ORDERED: SODIUM CHLORIDE 0.9% 1,000 ML IV ONE (06:22)
[2018-10-28] MEDS ORDERED: MORPHINE SULFATE 4 MG/ML CPJ (NOT FOR IM USE) IV STA ×2 (06:22→07:27)
[2018-10-28] MEDS ORDERED: FAMOTIDINE 20MG/2ML VIAL IV ONE (06:30)
[2018-10-28] MEDS ORDERED: HYDRALAZINE 20MG/ML VIAL IV ONE (06:30)
[2018-10-28 06:45] LABS: BASOPHILS % 0.4 % (0.0-2.0); EOSINOPHILS % 1.3 % (0.0-5.0); HEMATOCRIT. 36.6 % (42.0-52.0); HEMOGLOBIN. 11.9 g/dL (14.0-18.0); LYMPHOCYTES % 12.4 % (20.0-50.0); MEAN CORPUSCULAR VOLUME 76.7 fL (80.0-94.0); MEAN PLATELET VOLUME 8.1 fl (7.4-10.4); MONOCYTES % 8.9 % (2.0-8.0); PLATELET 380 x1000/uL (130-400); RED BLOOD CELL COUNT 4.78 mill/uL (4.7-6.1); RED CELL DISTRIBUTION WIDTH 22.8 % (11.6-14.6)
[2018-10-28 06:51] LABS: CHLORIDE 105 mEq/L (98-107)
[2018-10-28 07:26] LABS: PLATELET ESTIMATE NORMAL
[2018-10-28] MEDS ORDERED: METOCLOPRAMIDE HCL 10MG/2ML VIAL IV ONE (09:00)
[2018-10-28] MEDS ORDERED: POTASSIUM CHLORIDE 20MEQ TABLET SR PO ONE (09:00)
[2018-10-28] MEDS ORDERED: DEXT 5%/0.45% NACL 1000ML 1,000 ML IV SCH (11:21)
[2018-10-28] MEDS ORDERED: ONDANSETRON HCL 4MG/2ML INJ IV PRN (11:30)
[2018-10-28] MEDS ORDERED: CLONIDINE 0.1MG TABLET PO ONE (11:30)
[2018-10-28] MEDS ORDERED: GUAIFENESIN 200MG/10ML SUGAR FREE UDC PO PRN (11:30)
[2018-10-28] MEDS ORDERED: NIFEDIPINE XL 60MG TAB PO SCH (11:30)
[2018-10-28] MEDS ORDERED: ACETAMINOPHEN 650MG SUPP PR PRN (11:30)
[2018-10-28] MEDS ORDERED: DIPHENHYDRAMINE 50MG/ML VIAL IV PRN (11:30)
[2018-10-28] MEDS ORDERED: CLONIDINE 0.1MG TABLET PO PRN (11:30)
[2018-10-28] MEDS ORDERED: DOCUSATE SODIUM 100MG CAPSULE PO PRN (11:30)
[2018-10-28] MEDS ORDERED: ACETAMINOPHEN 325MG TABLET PO PRN (11:30)
[2018-10-28] MEDS ORDERED: PANTOPRAZOLE SODIUM 40 MG/VIAL IV SCH ×2 (11:30→21:00)
[2018-10-28] MEDS ORDERED: LORAZEPAM 2MG/ML CPJ IV PRN (11:30)
[2018-10-28] MEDS ORDERED: HYDROCODONE/ACETAMINOPHEN 5/325MG TABLET PO PRN (11:30)
[2018-10-28] MEDS ORDERED: HYDROMORPHONE HCL/PF 2MG/ML CPJ IV PRN ×2 (11:30→17:30)
[2018-10-28] MEDS ORDERED: DEXTROSE 50% WATER 50ML SYRINGE IV PRN ×2 (11:45)
[2018-10-28] MEDS ORDERED: METOPROLOL TARTRATE 50MG TABLET PO NR (13:15)
[2018-10-28] MEDS ORDERED: POTASSIUM CHLORIDE INJ 40 MEQ in DEXT 5% WATER 250 ML IV ONE (13:45)
[2018-10-28] MEDS ORDERED: AMLODIPINE 10MG TABLET PO NR (14:00)
[2018-10-28] MEDS ORDERED: HYDRALAZINE HCL 25MG TABLET PO NR (14:00)
[2018-10-28] MEDS ORDERED: GABAPENTIN 100MG CAPSULE PO SCH (14:00)
[2018-10-28] MEDS ORDERED: HYDRALAZINE HCL 25MG TABLET PO SCH (14:00)
[2018-10-28] MEDS: BLOOD SUGAR DIAGNOSTIC STRIP TEST SCH ×3 (14:30→21:23)
[2018-10-28] MEDS: INSULIN LISPRO 100 UNITS/ML SUBCUT SCH ×3 (14:59→21:00)
[2018-10-28 16:35] VITALS: BP 110/60
[2018-10-28] MEDS ORDERED: POTASSIUM CHLORIDE 20MEQ TABLET SR PO SCH (17:00)
[2018-10-28] MEDS ORDERED: MAGNESIUM/ALUMINUM HYDROXIDE/SIMETHICONE 30ML UDC PO PRN (17:00)
[2018-10-28] MEDS ORDERED: VISCOUS LIDOCAINE 2% 15 ML UDC MM PRN (17:00)
[2018-10-28] MEDS: NIFEDIPINE XL 60MG TAB PO SCH (17:00)
[2018-10-28] MEDS: DEXT 5%/0.45% NACL 1000ML 1,000 ML IV SCH (17:06)
[2018-10-28] MEDS: POTASSIUM CHLORIDE 20MEQ TABLET SR PO SCH (17:07)
[2018-10-28] MEDS ORDERED: POTASSIUM CHLORIDE INJ 40 MEQ in DEXT 5% WATER 250 ML IV NR (18:00)
[2018-10-28] MEDS: METOCLOPRAMIDE HCL 10MG/2ML VIAL IV SCH ×2 (18:08→23:37)
[2018-10-28 18:22] VITALS: BP 110/60
[2018-10-28 19:54] VITALS: BP 111/65
[2018-10-28] MEDS ORDERED: METOPROLOL TARTRATE 50MG TABLET PO SCH (21:00)
[2018-10-28] MEDS ORDERED: ATORVASTATIN CALCIUM 40MG TABLET PO SCH (21:00)
[2018-10-28] MEDS ORDERED: FAMOTIDINE 20MG/2ML VIAL IV SCH ×2 (21:00)
[2018-10-28] MEDS: ATORVASTATIN CALCIUM 40MG TABLET PO SCH (21:20)
[2018-10-28] MEDS: GABAPENTIN 100MG CAPSULE PO SCH (21:20)
[2018-10-28] MEDS: HYDRALAZINE HCL 25MG TABLET PO SCH (21:22)
[2018-10-28] MEDS: PANTOPRAZOLE 40MG DR TABLET PO SCH (21:23)
[2018-10-28] MEDS: METOPROLOL TARTRATE 50MG TABLET PO SCH (21:23)
[2018-10-28] MEDS: DICYCLOMINE HCL 10MG CAPSULE PO SCH (23:36)
[2018-10-29] VITALS: BP 100/57
[2018-10-29] MEDS: DEXT 5%/0.45% NACL 1000ML 1,000 ML IV SCH ×2 (04:01→18:58)
[2018-10-29] MEDS: HYDRALAZINE HCL 25MG TABLET PO SCH ×3 (06:00→21:20)
[2018-10-29] MEDS: METOCLOPRAMIDE HCL 10MG/2ML VIAL IV SCH ×3 (06:58→18:47)
[2018-10-29] MEDS: GABAPENTIN 100MG CAPSULE PO SCH ×3 (06:58→21:20)
[2018-10-29] MEDS: PANTOPRAZOLE 40MG DR TABLET PO SCH ×2 (06:59→21:20)
[2018-10-29] MEDS: BLOOD SUGAR DIAGNOSTIC STRIP TEST SCH ×4 (06:59→21:25)
[2018-10-29] MEDS ORDERED: ASPIRIN 81MG TABLET PO ONE (09:00)
[2018-10-29] MEDS ORDERED: GLIMEPIRIDE 1MG TABLET PO SCH (09:00)
[2018-10-29 09:03] VITALS: BP 144/65
[2018-10-29] MEDS: NIFEDIPINE XL 60MG TAB PO SCH ×2 (09:26→17:00)
[2018-10-29] MEDS: GLIMEPIRIDE 1MG TABLET PO SCH (09:26)
[2018-10-29] MEDS: ASPIRIN 81MG TABLET PO SCH (09:27)
[2018-10-29] MEDS: METOPROLOL TARTRATE 50MG TABLET PO SCH ×2 (09:27→21:20)
[2018-10-29] MEDS: POTASSIUM CHLORIDE 20MEQ TABLET SR PO SCH ×2 (09:27→18:47)
[2018-10-29] MEDS: ENOXAPARIN 40MG/0.4ML SYR SUBCUT SCH (09:28)
[2018-10-29] MEDS: DICYCLOMINE HCL 10MG CAPSULE PO SCH ×2 (09:32→18:47)
[2018-10-29] MEDS: INSULIN LISPRO 100 UNITS/ML SUBCUT SCH ×4 (09:49→21:00)
[2018-10-29 11:04] LABS: BASOPHILS % 0.8 % (0.0-2.0); EOSINOPHILS % 3.5 % (0.0-5.0); HEMATOCRIT. 33.1 % (42.0-52.0); HEMOGLOBIN. 10.5 g/dL (14.0-18.0); LYMPHOCYTES % 24.4 % (20.0-50.0); MEAN CORPUSCULAR HEMOGLOBIN 24.5 pg (28.0-32.0); MEAN CORPUSCULAR VOLUME 77.3 fL (80.0-94.0); MEAN PLATELET VOLUME 8.2 fl (7.4-10.4); MONOCYTES % 9.1 % (2.0-8.0); NEUTROPHILS % 62.2 % (40.0-76.0); PLATELET 315 x1000/uL (130-400); RED BLOOD CELL COUNT 4.28 mill/uL (4.7-6.1)
[2018-10-29 11:07] LABS: CHLORIDE 108 mEq/L (98-107)
[2018-10-29 12:45] VITALS: BP 161/89
[2018-10-29 16:49] VITALS: BP 104/55
[2018-10-29 16:54] LABS: CLARITY URINE CLEAR (CLEAR); COLOR URINE YELLOW (YELLOW); KETONES URINE NEGATIVE (NEGATIVE); LEUKOCYTE ESTERASE URINE NEGATIVE (NEGATIVE); NITRITE URINE NEGATIVE (NEGATIVE); OCCULT BLOOD URINE NEGATIVE (NEGATIVE); PH URINE 6.5 (4.5-8.0); PROTEIN URINE 2+ (NEGATIVE); SPECIFIC GRAVITY URINE 1.022 (1.005-1.030); UROBILINOGEN URINE 0.2 E.U./dL (0.2-1.0)
[2018-10-29 17:07] LABS: *AMPHETAMINES SCREEN URINE NEGATIVE (NEGATIVE); *BARBITURATES SCREEN URINE NEGATIVE (NEGATIVE); *BENZODIAZEPINES SCREEN URINE NEGATIVE (NEGATIVE)
[2018-10-29 17:08] LABS: *COCAINE SCREEN URINE NEGATIVE (NEGATIVE); CANNABINOID URINE SCREEN PRESUMTIVE POSITIVE (NEGATIVE); METHADONE URINE SCREEN NEGATIVE (NEGATIVE); OPIATES URINE SCREEN PRESUMTIVE POSITIVE (NEGATIVE); PHENCYCLIDINE URINE SCREEN NEGATIVE (NEGATIVE)
[2018-10-29 19:56] VITALS: BP 114/65
[2018-10-29] MEDS: ATORVASTATIN CALCIUM 40MG TABLET PO SCH (21:20)
[2018-10-30 00:01] VITALS: BP 131/68
[2018-10-30] MEDS: METOCLOPRAMIDE HCL 10MG/2ML VIAL IV SCH ×3 (02:01→12:00)
[2018-10-30] MEDS: GABAPENTIN 100MG CAPSULE PO SCH (06:00)
[2018-10-30] MEDS: HYDRALAZINE HCL 25MG TABLET PO SCH (06:00)
[2018-10-30] MEDS: PANTOPRAZOLE 40MG DR TABLET PO SCH (06:22)
[2018-10-30] MEDS: BLOOD SUGAR DIAGNOSTIC STRIP TEST SCH ×2 (06:23→12:20)
[2018-10-30] MEDS: DEXT 5%/0.45% NACL 1000ML 1,000 ML IV SCH (07:30)
[2018-10-30] MEDS: INSULIN LISPRO 100 UNITS/ML SUBCUT SCH ×2 (07:50→12:50)
[2018-10-30] MEDS: POTASSIUM CHLORIDE 20MEQ TABLET SR PO SCH (08:34)
[2018-10-30] MEDS: METOPROLOL TARTRATE 50MG TABLET PO SCH (08:34)
[2018-10-30] MEDS: NIFEDIPINE XL 60MG TAB PO SCH (08:34)
[2018-10-30] MEDS: ASPIRIN 81MG TABLET PO SCH (08:34)
[2018-10-30] MEDS: GLIMEPIRIDE 1MG TABLET PO SCH (08:34)
[2018-10-30] MEDS: ENOXAPARIN 40MG/0.4ML SYR SUBCUT SCH (08:35)
[2018-10-30] MEDS: DICYCLOMINE HCL 10MG CAPSULE PO SCH (08:35)
[2018-10-30 08:56] VITALS: BP 139/81
[2018-10-30 11:47] VITALS: BP 139/81
[2018-10-30 12:33] VITALS: BP 122/67
[2018-11-11] MEDS ORDERED: LANTUSUD SUBCUT (14:34)
== END 2018-10-30 14:10 | disposition home or self-care (01) | DRG 199 ==
LOC: ER 05:30 → 6WST 09:39 → ENRESERV 10:11 → CANRESERV 10:11 → EDBEDREQSVC 12:58 → ENRESERV 14:09 → ER 15:27
PROVIDERS: ADMIT Internal Medicine Geriatric Medicine; ATTEND Internal Medicine Geriatric Medicine
DX: I16.9 Hypertensive crisis, unspecified (principal); K31.84 Gastroparesis; E11.43 Type 2 diabetes mellitus with diabetic autonomic (poly)neuropathy; E87.6 Hypokalemia; G89.29 Other chronic pain; D63.8 Anemia in other chronic diseases classified elsewhere; K21.9 Gastro-esophageal reflux disease without esophagitis; K86.1 Other chronic pancreatitis; M54.12 Radiculopathy, cervical region; Z79.82 Long term (current) use of aspirin; Z79.899 Other long term (current) drug therapy; Z88.0 Allergy status to penicillin; Z88.8 Allergy status to other drugs, medicaments and biological substances; Z86.73 Personal history of transient ischemic attack (TIA), and cerebral infarction without residual deficits
CPT/HCPCS: 36415; 80305; 82962; 83036; 96374; 96375; 99285; J0360; J1170; J1650; J1815; J2270; J2405; J2765; J3480; J3490; J7030; J7060

== ENCOUNTER 2018-11-01 08:20 | Inpatient (IN) | payer MEDICAID, OTHER ==
[~2018-11-01] VITALS: Ht 165.1 cm; Wt 59.0 kg
[~2018-11-01 08:20] MED LIST changes: -ASPI-1159 PO
[2018-11-01] MEDS ORDERED: PANTOPRAZOLE SODIUM 40 MG/VIAL IV STA (09:20)
[2018-11-01] MEDS ORDERED: MORPHINE SULFATE 4 MG/ML CPJ (NOT FOR IM USE) IV STA (09:20)
[2018-11-01] MEDS ORDERED: SODIUM CHLORIDE 0.9% 1,000 ML IV ONE (09:20)
[2018-11-01 09:27] LABS: BASOPHILS % 0.3 % (0.0-2.0); EOSINOPHILS % 1.8 % (0.0-5.0); HEMOGLOBIN. 11.8 g/dL (14.0-18.0); LYMPHOCYTES % 8.1 % (20.0-50.0); MEAN CORPUSCULAR VOLUME 76.1 fL (80.0-94.0); MONOCYTES % 5.9 % (2.0-8.0); NEUTROPHILS % 83.9 % (40.0-76.0); PLATELET 387 x1000/uL (130-400); RED BLOOD CELL COUNT 4.73 mill/uL (4.7-6.1); RED CELL DISTRIBUTION WIDTH 23.3 % (11.6-14.6)
[2018-11-01] MEDS ORDERED: METOCLOPRAMIDE HCL 10MG/2ML VIAL IV ONE (09:30)
[2018-11-01 09:31] LABS: CHLORIDE 99 mEq/L (98-107)
[2018-11-01 09:34] LABS: ETHANOL BLOOD < 10 mg/dL
[2018-11-01 09:58] LABS: PLATELET ESTIMATE NORMAL
[2018-11-01] MEDS ORDERED: LABETALOL 5MG/ML SYR 20 MG/4 ML SYRINGE IV ONE ×2 (12:30→13:30)
[2018-11-01 13:23] LABS: CLARITY URINE CLEAR (CLEAR); COLOR URINE YELLOW (YELLOW); KETONES URINE TRACE (NEGATIVE); LEUKOCYTE ESTERASE URINE NEGATIVE (NEGATIVE); NITRITE URINE NEGATIVE (NEGATIVE); OCCULT BLOOD URINE TRACE (NEGATIVE); PH URINE >=9.0 (4.5-8.0); PROTEIN URINE 3+ (NEGATIVE); SPECIFIC GRAVITY URINE 1.013 (1.005-1.030); UROBILINOGEN URINE 0.2 E.U./dL (0.2-1.0)
[2018-11-01] MEDS ORDERED: ONDANSETRON HCL 4MG/2ML INJ IV ONE (13:30)
[2018-11-01] MEDS ORDERED: MORPHINE SULFATE 4 MG/ML CPJ (NOT FOR IM USE) IV ONE (13:30)
[2018-11-01 13:47] LABS: *AMPHETAMINES SCREEN URINE NEGATIVE (NEGATIVE); *BARBITURATES SCREEN URINE NEGATIVE (NEGATIVE); *BENZODIAZEPINES SCREEN URINE NEGATIVE (NEGATIVE); *COCAINE SCREEN URINE NEGATIVE (NEGATIVE); METHADONE URINE SCREEN NEGATIVE (NEGATIVE)
[2018-11-01 13:48] LABS: CANNABINOID URINE SCREEN PRESUMTIVE POSITIVE (NEGATIVE); OPIATES URINE SCREEN PRESUMTIVE POSITIVE (NEGATIVE); PHENCYCLIDINE URINE SCREEN NEGATIVE (NEGATIVE)
[2018-11-01] MEDS ORDERED: ONDANSETRON HCL 4MG/2ML INJ IV PRN (14:15)
[2018-11-01] MEDS ORDERED: ACETAMINOPHEN 325MG TABLET PO PRN (14:15)
[2018-11-01] MEDS ORDERED: GUAIFENESIN 200MG/10ML SUGAR FREE UDC PO PRN (14:15)
[2018-11-01] MEDS ORDERED: MAGNESIUM/ALUMINUM HYDROXIDE/SIMETHICONE 30ML UDC PO PRN (14:15)
[2018-11-01] MEDS ORDERED: IPRATROPIUM/ALBUTEROL 0.5-3(2.5)MG/3ML NEB INH PRN (14:15)
[2018-11-01] MEDS ORDERED: DOCUSATE SODIUM 100MG CAPSULE PO PRN (14:15)
[2018-11-01 15:17] LABS: PHOSPHORUS 1.9 mg/dL (2.5-4.9)
[2018-11-01] MEDS ORDERED: HYDROCODONE/ACETAMINOPHEN 5/325MG TABLET PO PRN (16:30)
[2018-11-01 17:00] VITALS: BP 154/78
[2018-11-01] MEDS: HYDROCHLOROTHIAZIDE 12.5MG CAPSULE PO SCH (17:55)
[2018-11-01] MEDS: OMEPRAZOLE 20MG CAPSULE EXTENDED RELEASE PO SCH (17:55)
[2018-11-01] MEDS: DIPHENHYDRAMINE 50MG/ML VIAL IV PRN (17:56)
[2018-11-01] MEDS ORDERED: DEXTROSE 50% WATER 50ML SYRINGE IV PRN (19:45)
[2018-11-01] MEDS ORDERED: POTASSIUM CHLORIDE 20MEQ TABLET SR PO NR (19:45)
[2018-11-01 20:00] VITALS: BP 153/87
[2018-11-01] MEDS: CLONIDINE 0.1MG TABLET PO PRN (20:19)
[2018-11-01] MEDS: ATORVASTATIN CALCIUM 40MG TABLET PO SCH (20:19)
[2018-11-01] MEDS: NIFEDIPINE XL 60MG TAB PO SCH (20:19)
[2018-11-01] MEDS: METOPROLOL TARTRATE 50MG TABLET PO SCH (20:19)
[2018-11-01 21:40] VITALS: BP 156/86
[2018-11-01] MEDS: GABAPENTIN 100MG CAPSULE PO SCH (21:52)
[2018-11-01] MEDS: SODIUM CHLORIDE 0.9% 1,000 ML IV SCH (21:52)
[2018-11-01] MEDS: BLOOD SUGAR DIAGNOSTIC STRIP TEST SCH (22:00)
[2018-11-01] MEDS: INSULIN LISPRO 100 UNITS/ML SUBCUT SCH (22:05)
[2018-11-02] VITALS (7 sets, daily range): BP systolic 102–162; BP diastolic 61–91
[2018-11-02] MEDS: GABAPENTIN 100MG CAPSULE PO SCH ×3 (06:32→21:10)
[2018-11-02] MEDS: BLOOD SUGAR DIAGNOSTIC STRIP TEST SCH ×4 (07:20→20:51)
[2018-11-02] MEDS: INSULIN LISPRO 100 UNITS/ML SUBCUT SCH ×3 (07:29→20:57)
[2018-11-02 07:33] LABS: BASOPHILS % 0.4 % (0.0-2.0); EOSINOPHILS % 4.1 % (0.0-5.0); HEMATOCRIT. 31.3 % (42.0-52.0); HEMOGLOBIN. 10.3 g/dL (14.0-18.0); LYMPHOCYTES % 22.5 % (20.0-50.0); MEAN CORPUSCULAR HEMOGLOBIN 25.2 pg (28.0-32.0); MEAN CORPUSCULAR VOLUME 76.8 fL (80.0-94.0); MEAN PLATELET VOLUME 7.9 fl (7.4-10.4); MONOCYTES % 8.8 % (2.0-8.0); NEUTROPHILS % 64.2 % (40.0-76.0); PLATELET 330 x1000/uL (130-400); RED BLOOD CELL COUNT 4.07 mill/uL (4.7-6.1); RED CELL DISTRIBUTION WIDTH 23.7 % (11.6-14.6)
[2018-11-02 08:23] LABS: CHLORIDE 107 mEq/L (98-107)
[2018-11-02] MEDS: METOPROLOL TARTRATE 50MG TABLET PO SCH ×2 (09:06→20:52)
[2018-11-02] MEDS: HYDROCHLOROTHIAZIDE 12.5MG CAPSULE PO SCH (09:06)
[2018-11-02] MEDS: OMEPRAZOLE 20MG CAPSULE EXTENDED RELEASE PO SCH (09:06)
[2018-11-02] MEDS: NIFEDIPINE XL 60MG TAB PO SCH ×2 (09:06→22:11)
[2018-11-02 09:12] LABS: HDL CHOLESTEROL 48 mg/dL (40-59)
[2018-11-02 09:14] LABS: LDL CHOLESTEROL 60 mg/dL (5-100)
[2018-11-02] MEDS: SODIUM CHLORIDE 0.9% 1,000 ML IV SCH ×2 (11:39→23:23)
[2018-11-02] MEDS: DIPHENHYDRAMINE 50MG/ML VIAL IV PRN (13:44)
[2018-11-02] MEDS: MORPHINE SULFATE 4 MG/ML CPJ (NOT FOR IM USE) IV PRN (13:45)
[2018-11-02] MEDS: ATORVASTATIN CALCIUM 40MG TABLET PO SCH (20:52)
[2018-11-03] MEDS: MORPHINE SULFATE 4 MG/ML CPJ (NOT FOR IM USE) IV PRN ×3 (02:12→23:37)
[2018-11-03 04:00] VITALS: BP 132/60
[2018-11-03] MEDS: GABAPENTIN 100MG CAPSULE PO SCH ×3 (06:16→21:03)
[2018-11-03] MEDS: BLOOD SUGAR DIAGNOSTIC STRIP TEST SCH ×4 (07:21→20:18)
[2018-11-03 08:00] VITALS: BP 136/83
[2018-11-03] MEDS: HYDROCHLOROTHIAZIDE 12.5MG CAPSULE PO SCH (09:00)
[2018-11-03] MEDS: OMEPRAZOLE 20MG CAPSULE EXTENDED RELEASE PO SCH (09:45)
[2018-11-03] MEDS: METOPROLOL TARTRATE 50MG TABLET PO SCH ×2 (09:46→21:03)
[2018-11-03] MEDS: NIFEDIPINE XL 60MG TAB PO SCH ×2 (09:46→21:04)
[2018-11-03] MEDS: INSULIN LISPRO 100 UNITS/ML SUBCUT SCH ×4 (10:22→21:11)
[2018-11-03 12:00] VITALS: BP 147/75
[2018-11-03 16:00] VITALS: BP 117/69
[2018-11-03 20:00] VITALS: BP 119/63
[2018-11-03] MEDS: ATORVASTATIN CALCIUM 40MG TABLET PO SCH (21:02)
[2018-11-03] MEDS: CYCLOBENZAPRINE 10MG TABLET PO SCH (21:26)
[2018-11-04] MEDS: MORPHINE SULFATE 4 MG/ML CPJ (NOT FOR IM USE) IV PRN (03:28)
[2018-11-04 04:00] VITALS: BP 158/93
[2018-11-04 05:21] LABS: BASOPHILS % 0.5 % (0.0-2.0); EOSINOPHILS % 1.3 % (0.0-5.0); HEMATOCRIT. 35.6 % (42.0-52.0); HEMOGLOBIN. 11.6 g/dL (14.0-18.0); LYMPHOCYTES % 10.3 % (20.0-50.0); MEAN CORPUSCULAR HEMOGLOBIN 24.7 pg (28.0-32.0); MEAN CORPUSCULAR VOLUME 75.9 fL (80.0-94.0); MEAN PLATELET VOLUME 8.1 fl (7.4-10.4); NEUTROPHILS % 82.9 % (40.0-76.0); PLATELET 484 x1000/uL (130-400); RED BLOOD CELL COUNT 4.69 mill/uL (4.7-6.1)
[2018-11-04] MEDS: CYCLOBENZAPRINE 10MG TABLET PO SCH ×3 (06:00→21:20)
[2018-11-04] MEDS: GABAPENTIN 100MG CAPSULE PO SCH ×3 (06:00→21:20)
[2018-11-04] MEDS: BLOOD SUGAR DIAGNOSTIC STRIP TEST SCH ×4 (06:41→21:00)
[2018-11-04 07:34] LABS: CHLORIDE 105 mEq/L (98-107)
[2018-11-04 08:00] VITALS: BP 180/91
[2018-11-04] MEDS: OMEPRAZOLE 20MG CAPSULE EXTENDED RELEASE PO SCH (08:45)
[2018-11-04] MEDS: NIFEDIPINE XL 60MG TAB PO SCH ×2 (08:46→20:28)
[2018-11-04] MEDS: INSULIN LISPRO 100 UNITS/ML SUBCUT SCH ×4 (08:46→21:00)
[2018-11-04] MEDS: METOPROLOL TARTRATE 50MG TABLET PO SCH ×2 (08:46→20:30)
[2018-11-04] MEDS: HYDROCHLOROTHIAZIDE 12.5MG CAPSULE PO SCH (08:46)
[2018-11-04] MEDS: METOCLOPRAMIDE 10MG/10 ML UDC PO SCH ×4 (08:48→20:24)
[2018-11-04] MEDS: CLONIDINE 0.1MG TABLET PO PRN (11:13)
[2018-11-04 12:00] VITALS: BP 205/96
[2018-11-04] MEDS ORDERED: LABETALOL 5MG/ML SYR 20 MG/4 ML SYRINGE IV PRN (12:00)
[2018-11-04] MEDS: CLONIDINE 0.1MG TABLET PO SCH ×2 (14:00→21:20)
[2018-11-04 16:00] VITALS: BP 130/79
[2018-11-04 20:00] VITALS: BP 160/92
[2018-11-04] MEDS: ATORVASTATIN CALCIUM 40MG TABLET PO SCH (20:24)
[2018-11-04] MEDS: FAMOTIDINE 20MG TABLET PO SCH (21:00)
[2018-11-05] VITALS: BP 92/52
[2018-11-05 04:00] VITALS: BP 134/70
[2018-11-05 06:22] LABS: BASOPHILS % 0.7 % (0.0-2.0); EOSINOPHILS % 2.5 % (0.0-5.0); HEMATOCRIT. 37.2 % (42.0-52.0); HEMOGLOBIN. 12.2 g/dL (14.0-18.0); LYMPHOCYTES % 18.3 % (20.0-50.0); MEAN CORPUSCULAR HEMOGLOBIN 25.5 pg (28.0-32.0); MEAN CORPUSCULAR VOLUME 77.5 fL (80.0-94.0); MONOCYTES % 6.9 % (2.0-8.0); NEUTROPHILS % 71.6 % (40.0-76.0); RED CELL DISTRIBUTION WIDTH 23.5 % (11.6-14.6)
[2018-11-05] MEDS: METOCLOPRAMIDE 10MG/10 ML UDC PO SCH ×4 (06:40→20:04)
[2018-11-05] MEDS: CYCLOBENZAPRINE 10MG TABLET PO SCH ×3 (06:43→20:52)
[2018-11-05] MEDS: CLONIDINE 0.1MG TABLET PO SCH ×3 (06:43→20:55)
[2018-11-05] MEDS: GABAPENTIN 100MG CAPSULE PO SCH ×3 (06:43→20:52)
[2018-11-05] MEDS: INSULIN LISPRO 100 UNITS/ML SUBCUT SCH ×4 (07:50→22:21)
[2018-11-05] MEDS: BLOOD SUGAR DIAGNOSTIC STRIP TEST SCH ×4 (07:52→21:00)
[2018-11-05 08:00] VITALS: BP 117/61
[2018-11-05] MEDS: HYDROCHLOROTHIAZIDE 12.5MG CAPSULE PO SCH (09:27)
[2018-11-05] MEDS: NIFEDIPINE XL 60MG TAB PO SCH ×2 (09:27→20:05)
[2018-11-05] MEDS: METOPROLOL TARTRATE 50MG TABLET PO SCH ×2 (09:27→20:05)
[2018-11-05] MEDS: FAMOTIDINE 20MG TABLET PO SCH (09:27)
[2018-11-05 12:00] VITALS: BP 106/68
[2018-11-05] MEDS: SODIUM CHLORIDE 0.9% 1,000 ML IV SCH (12:18)
[2018-11-05 16:00] VITALS: BP 110/66
[2018-11-05 20:00] VITALS: BP 111/68
[2018-11-05] MEDS: ATORVASTATIN CALCIUM 40MG TABLET PO SCH (20:05)
[2018-11-06] VITALS: BP 117/68
[2018-11-06 04:00] VITALS: BP 107/58
[2018-11-06] MEDS: CYCLOBENZAPRINE 10MG TABLET PO SCH ×2 (05:52→14:00)
[2018-11-06] MEDS: GABAPENTIN 100MG CAPSULE PO SCH ×2 (05:52→14:00)
[2018-11-06] MEDS: CLONIDINE 0.1MG TABLET PO SCH ×2 (05:53→14:00)
[2018-11-06] MEDS: METOCLOPRAMIDE 10MG/10 ML UDC PO SCH ×2 (06:26→12:38)
[2018-11-06] MEDS: BLOOD SUGAR DIAGNOSTIC STRIP TEST SCH ×2 (07:36→12:31)
[2018-11-06 08:00] VITALS: BP 121/74
[2018-11-06] MEDS: NIFEDIPINE XL 60MG TAB PO SCH (08:36)
[2018-11-06] MEDS: HYDROCHLOROTHIAZIDE 12.5MG CAPSULE PO SCH ×2 (08:36→08:38)
[2018-11-06] MEDS: METOPROLOL TARTRATE 50MG TABLET PO SCH (08:37)
[2018-11-06] MEDS ORDERED: FAMOTIDINE 20MG TABLET PO SCH (09:00)
[2018-11-06] MEDS: INSULIN LISPRO 100 UNITS/ML SUBCUT SCH ×2 (09:03→12:44)
[2018-11-06 12:00] VITALS: BP 130/76
[2018-11-06 14:22] VITALS: BP 126/64
[2018-11-11] MEDS ORDERED: LANTUSUD SUBCUT (14:34)
== END 2018-11-06 15:00 | disposition home or self-care (01) | DRG 282 ==
LOC: ER 08:20 → 6EST 13:44 → EDBEDREQ 14:01 → EDBEDREQTM 14:01 → EDBEDREQSVC 14:01 → ENRESERV 15:21
PROVIDERS: ADMIT Internal Medicine; ATTEND Internal Medicine
DX: K85.90 Acute pancreatitis without necrosis or infection, unspecified (principal); K31.84 Gastroparesis; E11.43 Type 2 diabetes mellitus with diabetic autonomic (poly)neuropathy; E87.6 Hypokalemia; K21.9 Gastro-esophageal reflux disease without esophagitis; K57.90 Diverticulosis of intestine, part unspecified, without perforation or abscess without bleeding; I10 Essential (primary) hypertension; E78.5 Hyperlipidemia, unspecified; K44.9 Diaphragmatic hernia without obstruction or gangrene; K85.00 Idiopathic acute pancreatitis without necrosis or infection; F17.200 Nicotine dependence, unspecified, uncomplicated; G89.29 Other chronic pain; Z88.0 Allergy status to penicillin; Z86.73 Personal history of transient ischemic attack (TIA), and cerebral infarction without residual deficits; Z88.8 Allergy status to other drugs, medicaments and biological substances; Z79.1 Long term (current) use of non-steroidal anti-inflammatories (NSAID); Z79.899 Other long term (current) drug therapy
CPT/HCPCS: 36415; 71045; 74176; 80048; 80061; 80305; 80320; 82962; 83735; 84100; 84443; 84484; 93005; 93970; 96374; 96375; 97116; 97162; 97166; 99285; C9113; J1200; J1815; J2270; J2405; J2765; J3490; J7030; J8597; G0480

== ENCOUNTER 2019-07-19 06:40 | Inpatient (IN) | payer OTHER ==
[~2019-07-19] VITALS: Ht 177.8 cm; Wt 77.6 kg
[~2019-07-19 06:40] MED LIST changes: -ACET-2178 MT; +LANTUSUD SUBCUT; +TOPUD MT
[2019-07-19] MEDS ORDERED: SODIUM CHLORIDE 0.9% 1,000 ML IV ONE (07:13)
[2019-07-19] MEDS ORDERED: PANTOPRAZOLE SODIUM 40 MG/VIAL IV STA (07:13)
[2019-07-19] MEDS ORDERED: ONDANSETRON HCL 4MG/2ML INJ IV ONE (07:15)
[2019-07-19] MEDS ORDERED: HALOPERIDOL LACTATE 5MG/ML VIAL IM ONE (07:15)
[2019-07-19 08:15] LABS: BASOPHILS % 0.6 % (0.0-2.0); EOSINOPHILS % 0.8 % (0.0-5.0); HEMATOCRIT. 41.6 % (42.0-52.0); HEMOGLOBIN. 14.1 g/dL (14.0-18.0); LYMPHOCYTES % 7.2 % (20.0-50.0); MEAN CORPUSCULAR HEMOGLOBIN 29.5 pg (28.0-32.0); MEAN CORPUSCULAR VOLUME 87.5 fL (80.0-94.0); MEAN PLATELET VOLUME 8.3 fl (7.4-10.4); MONOCYTES % 4.2 % (2.0-8.0); NEUTROPHILS % 87.2 % (40.0-76.0); PLATELET 399 x1000/uL (130-400); RED BLOOD CELL COUNT 4.76 mill/uL (4.7-6.1); RED CELL DISTRIBUTION WIDTH 15.2 % (11.6-14.6)
[2019-07-19 08:18] LABS: CHLORIDE 103 mEq/L (98-107); PROTHROMBIN TIME 9.9 sec (9.6-11.0)
[2019-07-19] MEDS ORDERED: KCL 10MEQ/50ML PREMIX 50 ML IV ONE (08:30)
[2019-07-19 17:28] VITALS: BP 197/100
[2019-07-19] MEDS ORDERED: DEXTROSE 50% WATER 50ML SYRINGE IV PRN (17:45)
[2019-07-19] MEDS ORDERED: CLONIDINE 0.1MG TABLET PO PRN (17:45)
[2019-07-19] MEDS ORDERED: MORPHINE SULFATE 2 MG/ML CPJ (NOT FOR IM USE) IV PRN (17:45)
[2019-07-19] MEDS ORDERED: ONDANSETRON HCL 4MG/2ML INJ IV PRN (17:45)
[2019-07-19] MEDS: INSULIN LISPRO 100 UNITS/ML SUBCUT SCH ×2 (18:00→22:06)
[2019-07-19] MEDS: SODIUM CHLORIDE 0.9% 1,000 ML IV SCH (18:02)
[2019-07-19 18:03] VITALS: BP 166/91
[2019-07-19] MEDS: HYDRALAZINE 20MG/ML VIAL IV PRN (18:09)
[2019-07-19 20:00] VITALS: BP 168/103
[2019-07-19] MEDS: AMLODIPINE 5MG TABLET PO SCH (21:31)
[2019-07-19] MEDS: BLOOD SUGAR DIAGNOSTIC STRIP TEST SCH (21:31)
[2019-07-19 22:00] VITALS: BP 140/76
[2019-07-20] VITALS (12 sets, daily range): BP systolic 121–166; BP diastolic 68–91
[2019-07-20] MEDS: SODIUM CHLORIDE 0.9% 1,000 ML IV SCH ×2 (03:11→23:45)
[2019-07-20 05:33] LABS: CHLORIDE 114 mEq/L (98-107)
[2019-07-20 05:52] LABS: BASOPHILS % 0.3 % (0.0-2.0); EOSINOPHILS % 1.7 % (0.0-5.0); HEMOGLOBIN. 11.8 g/dL (14.0-18.0); LYMPHOCYTES % 18.1 % (20.0-50.0); MEAN CORPUSCULAR HEMOGLOBIN 30.5 pg (28.0-32.0); MEAN CORPUSCULAR VOLUME 87.9 fL (80.0-94.0); MEAN PLATELET VOLUME 8.2 fl (7.4-10.4); NEUTROPHILS % 68.9 % (40.0-76.0); PLATELET 324 x1000/uL (130-400); RED BLOOD CELL COUNT 3.87 mill/uL (4.7-6.1); RED CELL DISTRIBUTION WIDTH 15.2 % (11.6-14.6)
[2019-07-20] MEDS: BLOOD SUGAR DIAGNOSTIC STRIP TEST SCH ×4 (07:30→21:15)
[2019-07-20] MEDS: INSULIN LISPRO 100 UNITS/ML SUBCUT SCH ×4 (08:00→21:00)
[2019-07-20] MEDS ORDERED: POTASSIUM CHLORIDE 20MEQ TABLET SR PO SCH (08:00)
[2019-07-20] MEDS: PANTOPRAZOLE SODIUM 40 MG/VIAL IV SCH ×2 (08:46→21:14)
[2019-07-20] MEDS: AMLODIPINE 5MG TABLET PO SCH ×2 (08:46→21:14)
[2019-07-20 17:45] LABS: HEMATOCRIT 34.1 % (42.0-52.0); HEMOGLOBIN 11.6 g/dL (14.0-18.0)
[2019-07-21] VITALS (7 sets, daily range): BP systolic 134–180; BP diastolic 60–102
[2019-07-21] MEDS: SODIUM CHLORIDE 0.9% 1,000 ML IV SCH (00:19)
[2019-07-21 07:28] LABS: BASOPHILS % 0.8 % (0.0-2.0); EOSINOPHILS % 5.2 % (0.0-5.0); HEMATOCRIT. 33.8 % (42.0-52.0); HEMOGLOBIN. 11.3 g/dL (14.0-18.0); LYMPHOCYTES % 27.6 % (20.0-50.0); MEAN CORPUSCULAR HEMOGLOBIN 29.8 pg (28.0-32.0); MEAN CORPUSCULAR VOLUME 88.8 fL (80.0-94.0); MEAN PLATELET VOLUME 8.2 fl (7.4-10.4); MONOCYTES % 7.6 % (2.0-8.0); NEUTROPHILS % 58.8 % (40.0-76.0); PLATELET 275 x1000/uL (130-400); RED BLOOD CELL COUNT 3.81 mill/uL (4.7-6.1); RED CELL DISTRIBUTION WIDTH 15.3 % (11.6-14.6)
[2019-07-21 07:46] LABS: CHLORIDE 116 mEq/L (98-107)
[2019-07-21] MEDS: BLOOD SUGAR DIAGNOSTIC STRIP TEST SCH (07:48)
[2019-07-21] MEDS: INSULIN LISPRO 100 UNITS/ML SUBCUT SCH (08:00)
[2019-07-21 08:31] LABS: CLARITY URINE CLEAR (CLEAR); COLOR URINE YELLOW (YELLOW); KETONES URINE NEGATIVE (NEGATIVE); LEUKOCYTE ESTERASE URINE NEGATIVE (NEGATIVE); NITRITE URINE NEGATIVE (NEGATIVE); OCCULT BLOOD URINE NEGATIVE (NEGATIVE); PH URINE 5.5 (4.5-8.0); PROTEIN URINE 2+ (NEGATIVE); SPECIFIC GRAVITY URINE 1.019 (1.005-1.030); UROBILINOGEN URINE 0.2 E.U./dL (0.2-1.0)
[2019-07-21] MEDS: PANTOPRAZOLE SODIUM 40 MG/VIAL IV SCH (09:01)
[2019-07-21] MEDS: HYDRALAZINE 20MG/ML VIAL IV PRN (09:02)
[2019-07-21] MEDS: AMLODIPINE 5MG TABLET PO SCH (09:02)
[2019-07-21 09:12] LABS: *AMPHETAMINES SCREEN URINE NEGATIVE (NEGATIVE); *BARBITURATES SCREEN URINE NEGATIVE (NEGATIVE); *BENZODIAZEPINES SCREEN URINE NEGATIVE (NEGATIVE); *COCAINE SCREEN URINE NEGATIVE (NEGATIVE); METHADONE URINE SCREEN NEGATIVE (NEGATIVE)
[2019-07-21 09:13] LABS: CANNABINOID URINE SCREEN PRESUMTIVE POSITIVE (NEGATIVE); OPIATES URINE SCREEN NEGATIVE (NEGATIVE); PHENCYCLIDINE URINE SCREEN NEGATIVE (NEGATIVE)
[2019-07-21] MEDS ORDERED: NIFEDIPINE XL 60MG TAB PO SCH (10:00)
[2019-07-21] MEDS ORDERED: NON FORMULARY PATIENT HOME MED XX SCH (10:00)
[2019-07-21] MEDS ORDERED: BACLOFEN 10MG TABLET PO PRN (10:00)
[2019-07-21] MEDS ORDERED: INSULIN GLARGINE UD 100 UNITS/ML SYR SUBCUT SCH (10:00)
[2019-07-21] MEDS ORDERED: LOSARTAN POTASSIUM 100 MG TABLET PO SCH (12:15)
[2019-07-21] MEDS ORDERED: GABAPENTIN 100MG CAPSULE PO SCH (13:00)
[2019-07-21] MEDS ORDERED: ATORVASTATIN CALCIUM 40MG TABLET PO SCH (21:00)
[2019-07-21] MEDS ORDERED: CITALOPRAM HYDROBROMIDE 10MG TABLET PO SCH (21:00)
== END 2019-07-21 12:00 | disposition left against medical advice (07) | DRG 253 ==
LOC: ER 06:40 → EDBEDREQ 08:45 → ENRESERV 15:13 → 5EST 17:08
PROVIDERS: ADMIT Internal Medicine; ATTEND Internal Medicine
DX: K92.0 Hematemesis (principal); E11.43 Type 2 diabetes mellitus with diabetic autonomic (poly)neuropathy; K31.84 Gastroparesis; R71.0 Precipitous drop in hematocrit; E87.6 Hypokalemia; D64.9 Anemia, unspecified; K44.9 Diaphragmatic hernia without obstruction or gangrene; I10 Essential (primary) hypertension; E78.5 Hyperlipidemia, unspecified; K21.9 Gastro-esophageal reflux disease without esophagitis; Z60.2 Problems related to living alone; Z53.29 Procedure and treatment not carried out because of patient's decision for other reasons; Z86.73 Personal history of transient ischemic attack (TIA), and cerebral infarction without residual deficits; Z88.0 Allergy status to penicillin; Z88.8 Allergy status to other drugs, medicaments and biological substances; Z97.4 Presence of external hearing-aid; Z79.899 Other long term (current) drug therapy; Z90.89 Acquired absence of other organs; Z87.11 Personal history of peptic ulcer disease
CPT/HCPCS: 36415; 71045; 80048; 80053; 80305; 81003; 82962; 85014; 85018; 85025; 86850; 86900; 93005; 99291; C9113; J0360; J1630; J1815; J2405; J3480; J7030

== ENCOUNTER 2020-09-14 17:51 | Emergency (ER) | payer MEDICAID, OTHER ==
[~2020-09-14] VITALS: Ht 175.3 cm; Wt 82.0 kg
[~2020-09-14 17:51] MED LIST changes: -ESCI20TA36 PO; +ESCI20TA47 PO; +NIFE-32 PO; -NIFE60TA64 PO; -OMEP20TA2 PO; +PANT40TA51 MT
[2020-09-14] MEDS ORDERED: ONDANSETRON HCL 4MG/2ML INJ IV STA (18:06)
[2020-09-14] MEDS ORDERED: FAMOTIDINE 20MG/2ML VIAL IV STA (18:06)
[2020-09-14] MEDS ORDERED: MORPHINE SULFATE 4 MG/ML CPJ (NOT FOR IM USE) IV STA (18:06)
[2020-09-14] MEDS ORDERED: SODIUM CHLORIDE 0.9% 1,000 ML IV ONE (18:15)
[2020-09-14] MEDS ORDERED: LORAZEPAM 2MG/ML CPJ IV ONE (18:30)
[2020-09-14 19:20] LABS: BASOPHILS % 0.3 % (0.0-2.0); EOSINOPHILS % 0.4 % (0.0-5.0); HEMATOCRIT. 29.9 % (42.0-52.0); HEMOGLOBIN. 9.8 g/dL (14.0-18.0); MEAN CORPUSCULAR HEMOGLOBIN 25.9 pg (28.0-32.0); MEAN CORPUSCULAR VOLUME 79.1 fL (80.0-94.0); MEAN PLATELET VOLUME 8.2 fl (7.4-10.4); MONOCYTES % 8.1 % (2.0-8.0); NEUTROPHILS % 83.2 % (40.0-76.0); PLATELET 532 x1000/uL (130-400); RED BLOOD CELL COUNT 3.78 mill/uL (4.7-6.1); RED CELL DISTRIBUTION WIDTH 17.1 % (11.6-14.6)
[2020-09-14 19:24] LABS: CHLORIDE 104 mEq/L (98-107)
[2020-09-14 19:28] LABS: ETHANOL BLOOD < 10 mg/dL
[2020-09-14 19:29] LABS: INR 1.1; PROTHROMBIN TIME 11.1 sec (9.6-11.0)
[2020-09-14 20:26] LABS: CLARITY URINE CLEAR (CLEAR); COLOR URINE YELLOW (YELLOW); KETONES URINE 1+ (NEGATIVE); LEUKOCYTE ESTERASE URINE NEGATIVE (NEGATIVE); NITRITE URINE NEGATIVE (NEGATIVE); OCCULT BLOOD URINE NEGATIVE (NEGATIVE); PH URINE 6.5 (4.5-8.0); PROTEIN URINE TRACE (NEGATIVE); SPECIFIC GRAVITY URINE 1.006 (1.005-1.030); UROBILINOGEN URINE 0.2 E.U./dL (0.2-1.0)
[2020-09-14 20:37] LABS: *AMPHETAMINES SCREEN URINE NEGATIVE (NEGATIVE); *BARBITURATES SCREEN URINE NEGATIVE (NEGATIVE); *BENZODIAZEPINES SCREEN URINE NEGATIVE (NEGATIVE); *COCAINE SCREEN URINE NEGATIVE (NEGATIVE)
[2020-09-14 20:39] LABS: CANNABINOID URINE SCREEN PRESUMTIVE POSITIVE (NEGATIVE); OPIATES URINE SCREEN PRESUMTIVE POSITIVE (NEGATIVE)
[2020-09-14 20:40] LABS: METHADONE URINE SCREEN NEGATIVE (NEGATIVE); PHENCYCLIDINE URINE SCREEN NEGATIVE (NEGATIVE)
[2020-09-14] MEDS ORDERED: LABETALOL 5MG/ML SYR 20 MG/4 ML SYRINGE IV ONE (21:45)
[2020-09-15 00:34] VITALS: BP 141/74
== END 2020-09-15 00:36 | disposition home or self-care (01) ==
LOC: ER 17:51
DX: R10.13 Epigastric pain (principal); R11.2 Nausea with vomiting, unspecified; I10 Essential (primary) hypertension; E11.9 Type 2 diabetes mellitus without complications; F17.290 Nicotine dependence, other tobacco product, uncomplicated; F12.10 Cannabis abuse, uncomplicated; Z79.899 Other long term (current) drug therapy; Z88.0 Allergy status to penicillin
CPT/HCPCS: 36415; 74176; 80053; 80305; 80320; 81003; 83690; 84484; 85025; 85610; 93005; 96361; 96374; 96375; 99285; J2060; J2270; J2405; J3490; J7030; G0480